=== PATIENT | female | born 1945 | race Hispanic/Latino ===

== ENCOUNTER 2019-04-29 09:36 | Outpatient (CLI) | payer MEDICARE ==
--- NOTE | 2019-04-29 14:45 | Mammography Report ---
DIGITAL SCREENING MAMMOGRAM WITH CAD, 04/29/2019 INDICATION: Routine screening mammography. TECHNIQUE: Digital bilateral 2D mammography was obtained in the craniocaudal and mediolateral obliq ue projections. Implant displaced views were attempted unsuccessfully because the implants could not be displaced. This examination was interpreted with the benefit of Computer-Aided Detection analysis. COMPARISON: 04/27/2018 FINDINGS: Breast Density: The breasts are heterogeneously dense, which may obscure small masses. There is no evidence of dominant mass, suspicious calcifications or architectural distortion in eithe r breast. Bilateral subglandular implants are unchanged in appearance. IMPRESSION: No mammographic evidence of malignancy. However, the sensitivity of the examination is li mited without implant displaced views. Consider bilateral global breast ultrasound as an additional s creening method. Follow up recommendation: Routine yearly BI-RADS Category 2: Benign. A "normal" or negative report should not discourage follow up or biopsy of a clinically significant f inding. A written summary of these findings will be mailed to the patient. The patient will be entered into a mammography reporting system which will generate a reminder letter for the patient's next appointmen t at the appropriate interval. The [employer] recommends yearly mammograms starting at age 40 and continuing as l porsche as a woman is in good health. Breast MRI is recommended for women with an approximate 20-25% or greater lifetime risk of breast cancer, including women with a strong family history of breast or ova myah cancer or who have been treated for Hodgkin's disease. Signer Name: Luis Teran MD Signed: 04/29/2019 2:41 PM Workstation Name: [id number]
== END 2019-04-29 09:37 | disposition home or self-care (01) ==
LOC: MAMMO 09:36
PROVIDERS: ATTEND Obstetrics & Gynecology
DX: Z12.31 Encounter for screening mammogram for malignant neoplasm of breast (principal)
CPT/HCPCS: 77067